=== PATIENT | male | born 1950 | race Caucasian/White ===

== ENCOUNTER → 2022-10-29 | Outpatient (CLI) | payer MEDICARE ==
[2022-10-29 11:51] LABS: HCT 38.6 % (39.6-50.0); HGB 12.7 g/dL (13.0-17.0); MCH 31.4 pg (27.0-32.0); MCHC 32.9 g/dL (32.0-37.0); MCV 95.3 fL (80.0-97.0); Mean Platelet Volume 13.6 fL (9.5-12.2); NRBC Per 100 WBC 0 /100 WBCS (0.0-0.0); Platelet Count 94 X 10*3/uL (140-440); RBC 4.05 X 10*6/uL (4.40-5.60); RDW 13.9 % (11.5-14.5); WBC 9.31 X 10*3/uL (4.50-10.00)
[2022-10-29 12:04] LABS: ALT 19 U/L (10-49); AST 13 U/L (14-35); African American GFR (CKD) 53.9 (60.0-200.0); Albumin 4.1 g/dL (3.8-4.9); Albumin/Globulin Ratio 1.58 (1.60-3.17); Alkaline Phosphatase 141 U/L (41-126); BUN/Creat Ratio 23.93 Ratio (12.00-20.00); Blood Urea Nitrogen 35.9 mg/dL (9.0-27.0); Calcium 9.7 mg/dL (8.7-10.3); Carbon Dioxide 26.3 mmol/L (20.0-27.5); Chloride 100 mmol/L (96-109); Chol/HDL Ratio 3.66 Ratio; Globulin 2.6 g/dL (1.6-3.3); Glucose 228 mg/dL (70-110); LDL Cholesterol,Calculated 59.1 mg/dL (0.0-131.0); Non-African American GFR(CKD) 46.5 (60.0-200.0); Potassium 4.2 mmol/L (3.5-5.5); Sodium 139 mmol/L (135-145); Total Protein 6.7 g/dL (6.2-8.2)
[2022-10-29 20:19] LABS: INR 0.95 (0.90-1.11); Prothrombin Time 10.8 sec (9.9-11.9)
== END | disposition home or self-care (01) ==
LOC: LABWHC1 08:17
PROVIDERS: ATTEND Family Medicine
DX: E11.65 Type 2 diabetes mellitus with hyperglycemia (principal); M17.12 Unilateral primary osteoarthritis, left knee
CPT/HCPCS: 36415; 80053; 80061; 83036; 84443; 85027; 85610; 87070

== ENCOUNTER → 2022-12-19 | Outpatient (CLI) | payer MEDICARE ==
[2022-12-19 12:18] LABS: Prothrombin Time 10.4 sec (9.0-12.0)
[2022-12-19 16:17] LABS: HGB 13.4 g/dL (13.0-17.0); MCH 30.8 pg (27.0-32.0); MCHC 32.7 g/dL (32.0-37.0); MCV 94.3 fL (80.0-97.0); Mean Platelet Volume 13.3 fL (9.5-12.2); NRBC Per 100 WBC 0 /100 WBCS (0.0-0.0); Platelet Count 92 X 10*3/uL (140-440); RBC 4.35 X 10*6/uL (4.40-5.60); RDW 14.1 % (11.5-14.5); WBC 7.86 X 10*3/uL (4.50-10.00)
[2022-12-19 19:21] LABS: African American GFR (CKD) 58.6 (60.0-200.0); Albumin 4.2 g/dL (3.8-4.9); Albumin/Globulin Ratio 1.5 (1.60-3.17); BUN/Creat Ratio 18.57 Ratio (12.00-20.00); Calcium 9.5 mg/dL (8.7-10.3); Globulin 2.8 g/dL (1.6-3.3); Non-African American GFR(CKD) 50.5 (60.0-200.0); Potassium 3.9 mmol/L (3.5-5.5); Total Bilirubin 1.3 mg/dL (0.30-1.20)
== END | disposition home or self-care (01) ==
LOC: LABWHC1 10:57
PROVIDERS: ATTEND Family Medicine
DX: Z01.818 Encounter for other preprocedural examination (principal); Z53.9 Procedure and treatment not carried out, unspecified reason
CPT/HCPCS: 36415; 80053; 85027; 85610; 85730; 87070

== ENCOUNTER → 2023-07-06 | Outpatient (CLI) | payer MEDICARE ==
[2023-07-06 20:48] LABS: HCT 38.2 % (39.6-50.0); HGB 12.8 d/dL (13.0-17.0); MCH 32.2 pg (27.0-32.0); MCHC 33.5 d/dL (32.0-37.0); Mean Platelet Volume 13.5 FL (9.5-12.2); NRBC Per 100 WBC 0 X 10*3/uL (0.00-0.01); Platelet Count 108 X 10*3/uL (140-440); RBC 3.98 X 10*6/uL (4.40-5.60); RDW 14.9 % (11.5-14.5); WBC 7.65 X 10*3/uL (4.50-10.00)
[2023-07-06 21:07] LABS: ALT 16 U/L (10-49); AST 15 U/L (14-35); Albumin 4.3 d/dL (3.8-4.9); Albumin/Globulin Ratio 1.79 Ratio (1.60-3.17); Alkaline Phosphatase 124 U/L (41-126); BUN/Creat Ratio 18.76 Ratio (12.00-20.00); Blood Urea Nitrogen 39.4 mg/dL (9.0-27.0); Calcium 9.4 mg/dL (8.7-10.3); Carbon Dioxide 26.2 mmol/L (21.6-31.8); Chloride 105 mmol/L (96-109); Chol/HDL Ratio 2.62 Ratio; Globulin 2.4 d/dL (1.6-3.3); Glucose 123 mg/dL (70-110); LDL Cholesterol,Calculated 18.5 mg/dL (0.0-131.0); Sodium 143 mmol/L (135-145); Total Bilirubin 0.7 mg/dL (0.3-1.2); Total Protein 6.7 d/dL (6.2-8.2)
== END | disposition home or self-care (01) ==
LOC: LABWHC1 13:23
PROVIDERS: ATTEND Nurse Practitioner
DX: Z00.00 Encounter for general adult medical examination without abnormal findings (principal); E11.65 Type 2 diabetes mellitus with hyperglycemia
CPT/HCPCS: 36415; 80053; 80061; 83036; 84153; 84443; 85027

== ENCOUNTER → 2023-12-22 | Outpatient (CLI) | payer MEDICARE ==
[2023-12-22 16:54] LABS: INR 1.06 sec (0.93-1.11); Prothrombin Time 11.4 sec (9.9-11.9)
== END | disposition home or self-care (01) ==
LOC: LABPAT 10:53
PROVIDERS: ATTEND Orthopaedic Surgery
DX: Z01.812 Encounter for preprocedural laboratory examination (principal); Z22.322 Carrier or suspected carrier of Methicillin resistant Staphylococcus aureus; M17.11 Unilateral primary osteoarthritis, right knee
CPT/HCPCS: 36415; 85610; 87070

== ENCOUNTER → 2024-01-11 | Outpatient (CLI) | payer MEDICARE ==
[2024-01-11 18:40] LABS: INR 1.03 sec (0.93-1.11); Prothrombin Time 11.1 sec (9.9-11.9)
[2024-01-11 20:41] LABS: Basophils # (A) 0.04 X 10*3/uL (0.00-0.10); Basophils % (A) 0.5 %; Eosinophils # (A) 0.13 X 10*3/uL (0.04-0.35); Eosinophils % (A) 1.5 %; HCT 40.5 % (39.6-50.0); HGB 13.2 g/dL (13.0-17.0); Lymphocytes # (A) 1.44 X 10*3/uL (0.90-5.00); Lymphocytes % (A) 17.1 %; MCH 32.5 pg (27.0-32.0); MCHC 32.6 g/dL (32.0-37.0); MCV 99.8 FL (80.0-97.0); Monocytes % (A) 5.9 %; NRBC Per 100 WBC 0 X 10*3/uL (0.00-0.01); Neutrophils # (A) 6.29 X 10*3/uL (1.80-7.70); Neutrophils % (A) 74.5 %; Platelet Count 98 X 10*3/uL (140-440); RBC 4.06 X 10*6/uL (4.40-5.60); RDW 15.6 % (11.5-14.5); WBC 8.44 X 10*3/uL (4.50-10.00)
[2024-01-11 21:00] LABS: BUN/Creat Ratio 25.69 Ratio (12.00-20.00); Blood Urea Nitrogen 33.4 mg/dL (9.0-27.0); Calcium 9.8 mg/dL (8.7-10.3); Carbon Dioxide 27.8 mmol/L (21.6-31.8); Chloride 100 mmol/L (96-109); Glucose 142 mg/dL (70-110); Potassium 4.6 mmol/L (3.5-5.5); Sodium 141 mmol/L (135-145)
== END | disposition home or self-care (01) ==
LOC: LABPAT 11:35
PROVIDERS: ATTEND Orthopaedic Surgery
DX: Z01.812 Encounter for preprocedural laboratory examination (principal); M17.11 Unilateral primary osteoarthritis, right knee
CPT/HCPCS: 80048; 85025; 85610

== ENCOUNTER → 2024-06-27 | Outpatient (CLI) | payer MEDICARE | END | disposition home or self-care (01) | LOC: LABPRL 11:30 | PROVIDERS: ATTEND Orthopaedic Surgery | DX: M25.461 Effusion, right knee | CPT/HCPCS: 85379; 85652; 86140 ==